=== PATIENT | male | born 1995 | race Caucasian/White ===

== ENCOUNTER 2016-11-24 16:48 | Emergency (ER) | payer OTHER ==
[2016-11-24] MEDS ORDERED: AMPICILLIN/SULBACTAM 3 GM in SODIUM CHLORIDE 0.9% MINIBAG 100 ML IV STA (17:27)
[2016-11-24] MEDS ORDERED: SODIUM CHLORIDE 0.9% 1,000 ML IV ONE (17:28)
[2016-11-24] MEDS ORDERED: DEXAMETHASONE 10 MG/ML VIAL IVP STA (17:28)
[2016-11-24] MEDS ORDERED: DEXAMETHASONE 10 MG/ML VIAL ONE (17:36)
== END 2016-11-24 18:44 | disposition home or self-care (01) ==
DX: Q89.2 Congenital malformations of other endocrine glands (principal); Z98.890 Other specified postprocedural states

== ENCOUNTER 2018-01-01 13:07 | Emergency (ER) | payer OTHER ==
[2018-01-01 13:45] VITALS: BP 145/85
--- NOTE | 2018-01-01 14:44 | ED Physician Documentation ---
PD HPI NVD - Stated complaint Stated Complaint: NAUSEA - Chief complaint Chief Complaint: General - History obtained from History obtained from: Patient - History of Present Illness Timing - onset: How many days ago (3-4) Timing - duration: Days (3-4) Timing - details: Gradual onset, Still present Associated symptoms: Other (has had congestion and sore throat, now ear pain and today vomiting.) Contributing factors: No: Sick contact, Bad food, Travel Worsened by: Moving Similar symptoms before: Has not had sx before Recently seen: Not recently seen Review of Systems Constitutional: reports: Myalgias. denies: Fever, Chills Ears: reports: Ear pain (right) Nose: reports: Rhinorrhea / runny nose, Congestion Throat: reports: Sore throat Respiratory: denies: Cough GI: reports: Nausea, Vomiting. denies: Abdominal Pain, Diarrhea Skin: denies: Rash, Lesions Neurologic: denies: Altered mental status, Headache PD PAST MEDICAL HISTORY - Past Medical History Past Medical History: No - Past Surgical History Past Surgical History: Yes - Present Medications Home Medications: Ambulatory Orders Medication Instructions Recorded Confirmed Amoxicillin 500 mg PO TID #20 capsule 01/01/18 Cetirizine [ZyrTEC] 10 mg PO DAILY #20 tablet 01/01/18 Dexamethasone [Decadron] 4 mg PO DAILY #5 tablet 01/01/18 Ondansetron Odt [Zofran] 4 mg TL Q6H PRN #15 tablet 01/01/18 - Allergies Allergies/Adverse Reactions: Allergies Allergy/AdvReac Type Severity Reaction Status Date / Time clindamycin Allergy Severe Nausea Verified 11/24/16 16:59 - Social History Does the pt smoke?: No Smoking Status: Never smoker Does the pt drink ETOH?: Yes ETOH Use: Beer Does the pt have substance abuse?: No - Immunizations Immunizations are current?: Yes - POLST Patient has POLST: No PD ED PE NORMAL - Vitals Vital signs reviewed: Yes - General General: Alert and oriented X 3, No acute distress, Well developed/nourished - HEENT HEENT: PERRL, EOMI (no nystagmus), Pharynx benign. No: Ears normal (left is good; right with redness and bulging. Canal appears okay. ) - Neck Neck: Supple, no meningeal sign - Cardiac Cardiac: RRR, No murmur - Respiratory Respiratory: Clear bilaterally - Abdomen Abdomen: Soft, Non tender - Derm Derm: Normal color, Warm and dry, No rash - Neuro Neuro: Alert and oriented X 3, No motor deficit, Normal speech Results - Vitals Vitals: Vital Signs - 24 hr 01/01/18 13:43 Temperature 36.4 C L Heart Rate 102 H Respiratory 19 Rate Blood Pressure 145/85 H O2 Saturation 98 Oxygen O2 Source Room air PD MEDICAL DECISION MAKING - ED course Complexity details: considered differential, d/w patient Departure - Departure Disposition: 01 Home, Self Care Clinical Impression: Nausea & vomiting Qualifiers: Vomiting type: unspecified Vomiting Intractability: non-intractable Qualified Code(s): R11.2 - Nausea with vomiting, unspecified Right otitis media Qualifiers: Otitis media type: suppurative Chronicity: acute Recurrence: not specified as recurrent Spontaneous tympanic membrane rupture: without spontaneous rupture Qualified Code(s): H66.001 - Acute suppurative otitis media without spontaneous rupture of ear drum, right ear Condition: Stable Record reviewed to determine appropriate education?: Yes Instructions: ED Otitis Media Acute Adult Prescriptions: Amoxicillin 500 mg PO TID #20 capsule Cetirizine [ZyrTEC] 10 mg PO DAILY #20 tablet Dexamethasone [Decadron] 4 mg PO DAILY #5 tablet Ondansetron Odt [Zofran] 4 mg TL Q6H PRN #15 tablet PRN Reason: Nausea / Vomiting Comments: The underlying process may be a viral illness or possibly allergies with the congestion and ear pain. It does look like it led into an ear infection on the right side and is likely contributing to the nausea from that. Rest for 1-2 days. Drink lots of fluids. Ondansetron if needed for nausea. Decadron steroid anti-inflammatory will help with the inflammation and symptoms. Amoxicillin 3 times a day for a week for the infection. Cetirizine daily for the next couple of weeks for possible underlying allergies. Forms: Activity restrictions Discharge Date/Time: 01/01/18 15:08
[2018-01-01] MEDS ORDERED: DEXAMETHASONE 10 MG/ML VIAL PO STA (14:59)
[2018-01-01] MEDS ORDERED: AMOXICILLIN 250 MG CAPSULE PO STA (14:59)
[2018-01-01] MEDS ORDERED: ONDANSETRON ODT 4 MG TABLET TL STA (14:59)
[2018-01-01] MEDS ORDERED: ACETAMINOPHEN 325 MG TABLET PO STA (14:59)
== END 2018-01-01 15:08 | disposition home or self-care (01) ==
LOC: ED 13:07
DX: R11.2 Nausea with vomiting, unspecified (principal); H66.001 Acute suppurative otitis media without spontaneous rupture of ear drum, right ear
CPT/HCPCS: 99283; A9270; Q0162

== ENCOUNTER 2019-01-31 10:43 | Emergency (ER) | payer SELFPAY ==
[2019-01-31 10:52] VITALS: BP 141/87
--- NOTE | 2019-01-31 12:32 | ED Physician Documentation ---
PD HPI HEENT - Stated complaint Stated Complaint: COUGHING UP BLOOD - Chief complaint Chief Complaint: Heent - History obtained from History obtained from: Patient - History of Present Illness Timing - onset: Other (He has been sick for about 5 days with severe right-sided sinus pressure radiating to the, productive cough with mild shortness of breath and sputum that is slightly blood-streaked starting today. He vacillates as to whether or not he is had fevers.) Review of Systems Constitutional: reports: Chills, Fatigue. denies: Sweats Ears: reports: Ear pain Nose: reports: Rhinorrhea / runny nose, Congestion, Sinus pressure / pain. denies: Epistaxis Throat: denies: Sore throat PD PAST MEDICAL HISTORY - Past Medical History Past Medical History: No - Past Surgical History Past Surgical History: Yes - Present Medications Home Medications: Ambulatory Orders Medication Instructions Recorded Confirmed Albuterol Sulf [Ventolin Hfa 1 - 2 puffs INH Q4HR PRN #1 inhaler 01/31/19 Inhaler] Amox/Clav 875/125 [Augmentin] 1 each PO Q12H #20 tablet 01/31/19 Guaifenesin/Pseudoephedrne HCl 1 each PO BID PRN #20 tab.er.12h 01/31/19 [Mucinex D ER 600-60 mg Tablet] predniSONE [Deltasone] 20 mg PO [id number] #21 tab 01/31/19 - Allergies Allergies/Adverse Reactions: Allergies Allergy/AdvReac Type Severity Reaction Status Date / Time clindamycin Allergy Severe Nausea Verified 01/31/19 10:52 - Social History Does the pt smoke?: No Smoking Status: Never smoker Does the pt drink ETOH?: Yes Does the pt have substance abuse?: No - Immunizations Immunizations are current?: Yes - POLST Patient has POLST: No PD ED PE NORMAL - Vitals Vital signs reviewed: Yes - General General: Alert and oriented X 3, No acute distress - HEENT HEENT: Other (Moderate right maxillary sinus tenderness, right TM is retracted without otitis. Oropharynx is normal.) - Neck Neck: Supple, no meningeal sign, No bony TTP - Cardiac Cardiac: RRR, No murmur - Respiratory Respiratory: No respiratory distress, Other (Mildly wheezy throughout with good air motion, nonlabored) - Abdomen Abdomen: Non tender - Neuro Neuro: Alert and oriented X 3, Normal speech Results - Vitals Vitals: Vital Signs - 24 hr 01/31/19 10:50 Temperature 36.5 C Heart Rate 71 Respiratory 16 Rate Blood Pressure 141/87 H O2 Saturation 98 Oxygen O2 Source Room air PD MEDICAL DECISION MAKING - ED course ED course: He does fit IDSA criteria for antibiotic treatment for sinusitis. Departure - Departure Disposition: 01 Home, Self Care Clinical Impression: Sinusitis Qualifiers: Sinusitis location: maxillary Chronicity: acute Recurrence: non-recurrent Qualified Code(s): J01.00 - Acute maxillary sinusitis, unspecified Condition: Good Record reviewed to determine appropriate education?: Yes Health Concerns: sinus infection, mild hemoptysis with clinical findings of bronchitis Plan of Treatment: Antibiotics, steroids, and inhaler and a decongestant. Follow-up with your doctor in 1 week if not better. Care Goals: improvement Assessment: as above Instructions: ED Sinusitis Abx Tx Prescriptions: Albuterol Sulf [Ventolin Hfa Inhaler] 1 - 2 puffs INH Q4HR PRN #1 inhaler PRN Reason: Shortness Of Air/Wheezing Amox/Clav 875/125 [Augmentin] 1 each PO Q12H #20 tablet Guaifenesin/Pseudoephedrne HCl [Mucinex D ER 600-60 mg Tablet] 1 each PO BID PRN #20 tab.er.12h PRN Reason: congestion predniSONE [Deltasone] 20 mg PO [id number] #21 tab
== END 2019-01-31 12:45 | disposition home or self-care (01) ==
LOC: ED 10:43
DX: J01.00 Acute maxillary sinusitis, unspecified (principal)
CPT/HCPCS: 99283

== ENCOUNTER 2022-02-20 13:52 | Emergency (ER) | payer OTHER ==
--- NOTE | 2022-02-20 14:38 | XRAY Report ---
PROCEDURE: Knee 4 View RT INDICATIONS: Trauma TECHNIQUE: 4 views of the right knee(s) were acquired. COMPARISON: None. FINDINGS: Bones: No fractures or dislocations. No suspicious bony lesions. Soft tissues: No joint effusion. No suspicious soft tissue calcifications. Prepatellar swelling an d fluid. IMPRESSION: Large prepatellar swelling/fluid, possibly prepatellar bursitis. No acute osseous abnorm ality. Reviewed by: Sathya Nava MD on 02/20/2022 2:37 PM PDT Approved by: Sathya Nava MD on 02/20/2022 2:37 PM PDT Station ID: [id number]
--- OUTSIDE RECORDS SUMMARY | 2022-02-20 14:42 | EXTERNAL MEDICAL SUMMARY RPT | Continuity of Care Document ---
:1995 Author Organization [facility] Address [address] [place] [address] Phone Allergies No information. Encounters No information. Functional Status No information. Immunizations No information. Medications No information. Problems No information. Procedures date description facility [id number] [facility] Results/Labs test date author facility value unit interpret ation Result panel 1 (unknown) (no (unknown) (unknown) (no value) (units (unk nown) date) unknown) (unknown) (no (unknown) (unknown) (no value) (units (unk nown) date) unknown) (unknown) (no (unknown) (unknown) [place], [place] (units ( unknown) date) [id number] unknown) (unknown) (no (unknown) (unknown) Draft (units (unkno wn) date) unknown) (unknown) (no (unknown) (unknown) [facility] (units (unknown) date) unknown) (unknown) (no (unknown) (unknown) Urology Office (units (unknown) date) Visit unknown) (unknown) (no (unknown) (unknown) (no value) (units (unk nown) date) unknown) (unknown) (no (unknown) (unknown) [phone] (units (unkn own) date) unknown) (unknown) (no (unknown) (unknown) 12/13/21 (units (unkno wn) date) unknown) (unknown) (no (unknown) (unknown) 26 Y/O M (units (unkno wn) date) presents to unknown) clinic as new patient for infertility (unknown) (no (unknown) (unknown) Age/Sex: 26 / M (units (unknown) date) Date of unknown) Service: (unknown) (no (unknown) (unknown) Allergies (units (unkn own) date) unknown) (unknown) (no (unknown) (unknown) Attending Dr: (units ( unknown) date) Ceferino Carl MD unknown) (unknown) (no (unknown) (unknown) : 1995 (units (unknown) date) Acct:[id number] unknown) (unknown) (no (unknown) (unknown) Dept at (units (unkno wn) date) . unknown) (unknown) (no (unknown) (unknown) Documented By: (units (unknown) date) Ceferino Carl MD unknown) 12/13/21 1105 (unknown) (no (unknown) (unknown) History of (units (unk nown) date) pyloric stenosis unknown) (unknown) (no (unknown) (unknown) Hx of thyroid (units ( unknown) date) cyst unknown) (unknown) (no (unknown) (unknown) Intake (units (unkno wn) date) unknown) (unknown) (no (unknown) (unknown) Intake Note: (units (u nknown) date) unknown) (unknown) (no (unknown) (unknown) Intake performed (units (unknown) date) by: unknown) Samanta Schroeder (unknown) (no (unknown) (unknown) Intake- Clincial (units (unknown) date) Staff unknown) (unknown) (no (unknown) (unknown) Loc: [facility] (units (unkno wn) date) unknown) (unknown) (no (unknown) (unknown) Medical History (units (unknown) date) (Updated 12/13/21 unknown) @ 10:57 by Samanta Schroeder RN) (unknown) (no (unknown) (unknown) Medications (units (un known) date) unknown) (unknown) (no (unknown) (unknown) PFSH (units (unkno wn) date) unknown) (unknown) (no (unknown) (unknown) Patient denies (units (unknown) date) medical problems unknown) (unknown) (no (unknown) (unknown) Patient: (units (unkno wn) date) Eugenia,Steve J unknown) MR#: M (unknown) (no (unknown) (unknown) Reason For Visit (units (unknown) date) unknown) (unknown) (no (unknown) (unknown) Signed By: (units (unk nown) date) unknown) (unknown) (no (unknown) (unknown) Smoking Status: (units (unknown) date) Never smoker unknown) (unknown) (no (unknown) (unknown) Smoking Status: (units (unknown) date) Never smoker unknown) (unknown) (no (unknown) (unknown) Social History (units (unknown) date) (Updated 12/13/21 unknown) @ 11:00 by Samanta Schroeder RN) (unknown) (no (unknown) (unknown) This note may (units ( unknown) date) have been all or unknown) partially generated using voice recognition (unknown) (no (unknown) (unknown) Tobacco Status (units (unknown) date) unknown) (unknown) (no (unknown) (unknown) Type(s) of (units (unk nown) date) exercise: unknown) independent ambulation (unknown) (no (unknown) (unknown) 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 (units (unknown) date) If there are any unknown) questions, please contact the Medical Records (unknown) (no (unknown) (unknown) marital status: (units (unknown) date) unknown) (unknown) (no (unknown) (unknown) may occur. (units (unk nown) date) Occasional unknown) wrong-word or 'sound-alike' substitutions may have (unknown) (no (unknown) (unknown) [id number] (units (unknown) date) ic-vit K-lycop unknown) [One-A-Day Men's Multivitamin] PO 12/13/21 (unknown) (no (unknown) (unknown) number of (units (unkn own) date) children: 0 unknown) (unknown) (no (unknown) (unknown) occupational (units (u nknown) date) status: employed unknown) (unknown) (no (unknown) (unknown) occurred due to (units (unknown) date) the inherent unknown) limitations of voice recognition software. Please (unknown) (no (unknown) (unknown) read the note (units ( unknown) date) carefully and unknown) recognize, using context, where these substitutions (unknown) (no (unknown) (unknown) software. (units (unkn own) date) Although every unknown) effort is made to edit content, metallographer errors Result panel 2 (unknown) (no (unknown) (unknown) (no value) (units (unk nown) date) unknown) (unknown) (no (unknown) (unknown) Orders: (units (unkno wn) date) unknown) (unknown) (no (unknown) (unknown) (no value) (units (unk nown) date) unknown) (unknown) (no (unknown) (unknown) (no value) (units (unk nown) date) unknown) (unknown) (no (unknown) (unknown) 12/13/21 (units (unkno wn) date) unknown) (unknown) (no (unknown) (unknown) 11:15 (units (unkno wn) date) unknown) (unknown) (no (unknown) (unknown) [place], [place] (units ( unknown) date) [id number] unknown) (unknown) (no (unknown) (unknown) Draft (units (unkno wn) date) unknown) (unknown) (no (unknown) (unknown) [facility] (units (unknown) date) unknown) (unknown) (no (unknown) (unknown) Urology Office (units (unknown) date) Visit unknown) (unknown) (no (unknown) (unknown) (no value) (units (unk nown) date) unknown) (unknown) (no (unknown) (unknown) Urine Appearance (units (unknown) date) Clear Last unknown) Edit by Winter Gutierrez RN on 12/13/21 11:14 (unknown) (no (unknown) (unknown) Urine Bilirubin (units (unknown) date) Negative Last unknown) Edit by Winter Gutierrez RN on 12/13/21 11:14 (unknown) (no (unknown) (unknown) Urine Blood (units (un known) date) Negative Last unknown) Edit by Winter Gutierrez RN on 12/13/21 11:14 (unknown) (no (unknown) (unknown) Urine Color (units (un known) date) Yellow Last unknown) Edit by Winter Gutierrez RN on 12/13/21 11:14 (unknown) (no (unknown) (unknown) Urine Glucose (units ( unknown) date) Negative mg/dL unknown) Last Edit by Winter Gutierrez RN on 12/13/21 11: (unknown) (no (unknown) (unknown) Urine Ketones (units ( unknown) date) Negative Last unknown) Edit by Winter Gutierrez RN on 12/13/21 11:14 (unknown) (no (unknown) (unknown) Urine Leukocyte (units (unknown) date) Esterase Negative unknown) Last Edit by Winter Gutierrez RN on (unknown) (no (unknown) (unknown) Urine Nitrate (units ( unknown) date) Negative Last unknown) Edit by Winter Gutierrez RN on 12/13/21 11:14 (unknown) (no (unknown) (unknown) Urine Protein (units ( unknown) date) Negative Last unknown) Edit by Winter Gutierrez RN on 12/13/21 11:14 (unknown) (no (unknown) (unknown) Urine Specific (units (unknown) date) [place] 1.015 unknown) Last Edit by Winter Gutierrez RN on 12/13/21 11 (unknown) (no (unknown) (unknown) Urine (units (unkno wn) date) Urobilinogen - unknown) 0.2 mg/dL Last Edit by Winter Gutierrez RN on (unknown) (no (unknown) (unknown) Urine pH 7.5 (units (unknown) date) Last Edit by unknown) Winter Gutierrez RN on 12/13/21 11:14 (unknown) (no (unknown) (unknown) [phone] (units (unkn own) date) unknown) (unknown) (no (unknown) (unknown) 12/13/21 (units (unkno wn) date) unknown) (unknown) (no (unknown) (unknown) 11:14 (units (unkno wn) date) unknown) (unknown) (no (unknown) (unknown) 14 (units (unkno wn) date) unknown) (unknown) (no (unknown) (unknown) 2 (units (unkno wn) date) unknown) (unknown) (no (unknown) (unknown) 22 (units (unkno wn) date) unknown) (unknown) (no (unknown) (unknown) 26 Y/O M (units (unkno wn) date) presents to unknown) clinic as new patient for infertility (unknown) (no (unknown) (unknown) :14 (units (unkno wn) date) unknown) (unknown) (no (unknown) (unknown) Age/Sex: 26 / M (units (unknown) date) Date of unknown) Service: (unknown) (no (unknown) (unknown) Allergies (units (unkn own) date) unknown) (unknown) (no (unknown) (unknown) Assessment + (units (u nknown) date) Plan unknown) (unknown) (no (unknown) (unknown) Attending Dr: (units ( unknown) date) Ceferino Carl MD unknown) (unknown) (no (unknown) (unknown) BMI 25.7 (units (un known) date) unknown) (unknown) (no (unknown) (unknown) BP 131/81 (units (u nknown) date) unknown) (unknown) (no (unknown) (unknown) Blood Pressure (units (unknown) date) Location Lt unknown) brachial (unknown) (no (unknown) (unknown) : 1995 (units (unknown) date) Acct:[id number] unknown) (unknown) (no (unknown) (unknown) Dept at (units (unkno wn) date) . unknown) (unknown) (no (unknown) (unknown) Documented By: (units (unknown) date) Ceferino Carl MD unknown) 12/13/21 1105 (unknown) (no (unknown) (unknown) Height 6 ft 1 (units (unknown) date) in unknown) (unknown) (no (unknown) (unknown) History of (units (unk nown) date) pyloric stenosis unknown) (unknown) (no (unknown) (unknown) Hx of thyroid (units ( unknown) date) cyst unknown) (unknown) (no (unknown) (unknown) Intake (units (unkno wn) date) unknown) (unknown) (no (unknown) (unknown) Intake Note: (units (u nknown) date) unknown) (unknown) (no (unknown) (unknown) Intake performed (units (unknown) date) by: unknown) Samanta Schroeder (unknown) (no (unknown) (unknown) Intake- Clincial (units (unknown) date) Staff unknown) (unknown) (no (unknown) (unknown) Loc: [facility] (units (unkno wn) date) unknown) (unknown) (no (unknown) (unknown) Medical History (units (unknown) date) (Updated 12/13/21 unknown) @ 10:57 by Samanta Schroeder RN) (unknown) (no (unknown) (unknown) Medications (units (un known) date) unknown) (unknown) (no (unknown) (unknown) Orders (units (unkno wn) date) unknown) (unknown) (no (unknown) (unknown) Oxygen Delivery (units (unknown) date) Method room unknown) air (unknown) (no (unknown) (unknown) PFSH (units (unkno wn) date) unknown) (unknown) (no (unknown) (unknown) POC Urine Dip (units ( unknown) date) Today R30.0 - unknown) Dysuria (unknown) (no (unknown) (unknown) Patient denies (units (unknown) date) medical problems unknown) (unknown) (no (unknown) (unknown) Patient: (units (unkno wn) date) Steve Fleming J unknown) MR#: M (unknown) (no (unknown) (unknown) Position (units (unkno wn) date) Sitting unknown) (unknown) (no (unknown) (unknown) Pulse 64 (units (un known) date) unknown) (unknown) (no (unknown) (unknown) Pulse Oximetry (units (unknown) date) (%) 100 unknown) (unknown) (no (unknown) (unknown) Pulse Source (units (u nknown) date) Monitor unknown) (unknown) (no (unknown) (unknown) Reason For Visit (units (unknown) date) unknown) (unknown) (no (unknown) (unknown) Respiration (units (un known) date) 16 unknown) (unknown) (no (unknown) (unknown) Results (units (unkno wn) date) unknown) (unknown) (no (unknown) (unknown) Signed By: (units (unk nown) date) unknown) (unknown) (no (unknown) (unknown) Smoking Status: (units (unknown) date) Never smoker unknown) (unknown) (no (unknown) (unknown) Smoking Status: (units (unknown) date) Never smoker unknown) (unknown) (no (unknown) (unknown) Social History (units (unknown) date) (Updated 12/13/21 unknown) @ 11:00 by Samanta Schroeder RN) (unknown) (no (unknown) (unknown) This note may (units ( unknown) date) have been all or unknown) partially generated using voice recognition (unknown) (no (unknown) (unknown) Tobacco Status (units (unknown) date) unknown) (unknown) (no (unknown) (unknown) Type(s) of (units (unk nown) date) exercise: unknown) independent ambulation (unknown) (no (unknown) (unknown) Urine Dipstick (units (unknown) date) unknown) (unknown) (no (unknown) (unknown) 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 (units (unknown) date) If there are any unknown) questions, please contact the Medical Records (unknown) (no (unknown) (unknown) marital status: (units (unknown) date) unknown) (unknown) (no (unknown) (unknown) may occur. (units (unk nown) date) Occasional unknown) wrong-word or 'sound-alike' substitutions may have (unknown) (no (unknown) (unknown) [id number] (units (unknown) date) ic-vit K-lycop unknown) [One-A-Day Men's Multivitamin] PO 12/13/21 (unknown) (no (unknown) (unknown) number of (units (unkn own) date) children: 0 unknown) (unknown) (no (unknown) (unknown) occupational (units (u nknown) date) status: employed unknown) (unknown) (no (unknown) (unknown) occurred due to (units (unknown) date) the inherent unknown) limitations of voice recognition software. Please (unknown) (no (unknown) (unknown) read the note (units ( unknown) date) carefully and unknown) recognize, using context, where these substitutions (unknown) (no (unknown) (unknown) software. (units (unkn own) date) Although every unknown) effort is made to edit content, metallographer errors Result panel 3 (unknown) (no (unknown) (unknown) (no value) (units (unk nown) date) unknown) (unknown) (no (unknown) (unknown) Orders: (units (unkno wn) date) unknown) (unknown) (no (unknown) (unknown) (no value) (units (unk nown) date) unknown) (unknown) (no (unknown) (unknown) (no value) (units (unk nown) date) unknown) (unknown) (no (unknown) (unknown) 12/13/21 (units (unkno wn) date) unknown) (unknown) (no (unknown) (unknown) 11:15 (units (unkno wn) date) unknown) (unknown) (no (unknown) (unknown) [place], [place] (units ( unknown) date) [id number] unknown) (unknown) (no (unknown) (unknown) Draft (units (unkno wn) date) unknown) (unknown) (no (unknown) (unknown) [facility] (units (unknown) date) unknown) (unknown) (no (unknown) (unknown) Urology Office (units (unknown) date) Visit unknown) (unknown) (no (unknown) (unknown) (no value) (units (unk nown) date) unknown) (unknown) (no (unknown) (unknown) Urine Appearance (units (unknown) date) Clear Last unknown) Edit by Winter Gutierrez RN on 12/13/21 11:14 (unknown) (no (unknown) (unknown) Urine Bilirubin (units (unknown) date) Negative Last unknown) Edit by Winter Gutierrez RN on 12/13/21 11:14 (unknown) (no (unknown) (unknown) Urine Blood (units (un known) date) Negative Last unknown) Edit by Winter Gutierrez RN on 12/13/21 11:14 (unknown) (no (unknown) (unknown) Urine Color (units (un known) date) Yellow Last unknown) Edit by Winter Gutierrez RN on 12/13/21 11:14 (unknown) (no (unknown) (unknown) Urine Glucose (units ( unknown) date) Negative mg/dL unknown) Last Edit by Winter Gutierrez RN on 12/13/21 11: (unknown) (no (unknown) (unknown) Urine Ketones (units ( unknown) date) Negative Last unknown) Edit by Winter Gutierrez RN on 12/13/21 11:14 (unknown) (no (unknown) (unknown) Urine Leukocyte (units (unknown) date) Esterase Negative unknown) Last Edit by Winter Gutierrez RN on (unknown) (no (unknown) (unknown) Urine Nitrate (units ( unknown) date) Negative Last unknown) Edit by Winter Gutierrez RN on 12/13/21 11:14 (unknown) (no (unknown) (unknown) Urine Protein (units ( unknown) date) Negative Last unknown) Edit by Winter Gutierrez RN on 12/13/21 11:14 (unknown) (no (unknown) (unknown) Urine Specific (units (unknown) date) [place] 1.015 unknown) Last Edit by Winter Gutierrez RN on 12/13/21 11 (unknown) (no (unknown) (unknown) Urine (units (unkno wn) date) Urobilinogen - unknown) 0.2 mg/dL Last Edit by Winter Gutierrez RN on (unknown) (no (unknown) (unknown) Urine pH 7.5 (units (unknown) date) Last Edit by unknown) Winter Gutierrez RN on 12/13/21 11:14 (unknown) (no (unknown) (unknown) [id number] (units (unkn own) date) unknown) (unknown) (no (unknown) (unknown) 12/13/21 (units (unkno wn) date) unknown) (unknown) (no (unknown) (unknown) 11:14 (units (unkno wn) date) unknown) (unknown) (no (unknown) (unknown) 14 (units (unkno wn) date) unknown) (unknown) (no (unknown) (unknown) 2 (units (unkno wn) date) unknown) (unknown) (no (unknown) (unknown) 22 (units (unkno wn) date) unknown) (unknown) (no (unknown) (unknown) 26 Y/O M (units (unkno wn) date) presents to unknown) clinic as new patient for infertility (unknown) (no (unknown) (unknown) :14 (units (unkno wn) date) unknown) (unknown) (no (unknown) (unknown) Abnormal semen (units (unknown) date) analysis unknown) (unknown) (no (unknown) (unknown) Age/Sex: 26 / M (units (unknown) date) Date of unknown) Service: (unknown) (no (unknown) (unknown) Allergies (units (unkn own) date) unknown) (unknown) (no (unknown) (unknown) Assessment + (units (u nknown) date) Plan unknown) (unknown) (no (unknown) (unknown) Attending Dr: (units ( unknown) date) Ceferino Carl MD unknown) (unknown) (no (unknown) (unknown) BMI 25.7 (units (un known) date) unknown) (unknown) (no (unknown) (unknown) BP 131/81 (units (u nknown) date) unknown) (unknown) (no (unknown) (unknown) Blood Pressure (units (unknown) date) Location Lt unknown) brachial (unknown) (no (unknown) (unknown) Chief Complaint (units (unknown) date) unknown) (unknown) (no (unknown) (unknown) Chief Complaint: (units (unknown) date) Abnormal sperm unknown) motility/infertil ity (unknown) (no (unknown) (unknown) : 1995 (units (unknown) date) Acct:[id number] unknown) (unknown) (no (unknown) (unknown) Dept at (units (unkno wn) date) . unknown) (unknown) (no (unknown) (unknown) Details: (units (unkno wn) date) unknown) (unknown) (no (unknown) (unknown) Documented By: (units (unknown) date) Ceferino Carl MD unknown) 12/13/21 1105 (unknown) (no (unknown) (unknown) HPI (units (unkno wn) date) unknown) (unknown) (no (unknown) (unknown) Height 6 ft 1 (units (unknown) date) in unknown) (unknown) (no (unknown) (unknown) History of (units (unk nown) date) pyloric stenosis unknown) (unknown) (no (unknown) (unknown) Hx of thyroid (units ( unknown) date) cyst unknown) (unknown) (no (unknown) (unknown) Intake (units (unkno wn) date) unknown) (unknown) (no (unknown) (unknown) Intake Note: (units (u nknown) date) unknown) (unknown) (no (unknown) (unknown) Intake performed (units (unknown) date) by: unknown) Samanta Schroeder (unknown) (no (unknown) (unknown) Intake- Clincial (units (unknown) date) Staff unknown) (unknown) (no (unknown) (unknown) Loc: [facility] (units (unkno wn) date) unknown) (unknown) (no (unknown) (unknown) Medical History (units (unknown) date) (Updated 12/13/21 unknown) @ 14:20 by Ceferino Carl MD) (unknown) (no (unknown) (unknown) Medications (units (un known) date) unknown) (unknown) (no (unknown) (unknown) Orders (units (unkno wn) date) unknown) (unknown) (no (unknown) (unknown) Oxygen Delivery (units (unknown) date) Method room unknown) air (unknown) (no (unknown) (unknown) PFSH (units (unkno wn) date) unknown) (unknown) (no (unknown) (unknown) POC Urine Dip (units ( unknown) date) 12/13/21 R30.0 - unknown) Dysuria (unknown) (no (unknown) (unknown) Patient denies (units (unknown) date) medical problems unknown) (unknown) (no (unknown) (unknown) Patient: (units (unkno wn) date) Steve Fleming J unknown) MR#: M (unknown) (no (unknown) (unknown) Position (units (unkno wn) date) Sitting unknown) (unknown) (no (unknown) (unknown) Pulse 64 (units (un known) date) unknown) (unknown) (no (unknown) (unknown) Pulse Oximetry (units (unknown) date) (%) 100 unknown) (unknown) (no (unknown) (unknown) Pulse Source (units (u nknown) date) Monitor unknown) (unknown) (no (unknown) (unknown) Reason For Visit (units (unknown) date) unknown) (unknown) (no (unknown) (unknown) Respiration (units (un known) date) 16 unknown) (unknown) (no (unknown) (unknown) Results (units (unkno wn) date) unknown) (unknown) (no (unknown) (unknown) Semen Analysis - (units (unknown) date) Fertility 1 Week unknown) R86.9 - Unspecified abnormal finding in (unknown) (no (unknown) (unknown) Semen Analysis - (units (unknown) date) Fertility 3 Weeks unknown) R86.9 - Unspecified abnormal finding in (unknown) (no (unknown) (unknown) Signed By: (units (unk nown) date) unknown) (unknown) (no (unknown) (unknown) Smoking Status: (units (unknown) date) Never smoker unknown) (unknown) (no (unknown) (unknown) Smoking Status: (units (unknown) date) Never smoker unknown) (unknown) (no (unknown) (unknown) Social History (units (unknown) date) (Updated 12/13/21 unknown) @ 11:00 by Samanta Schroeder RN) (unknown) (no (unknown) (unknown) This 26-year-old (units (unknown) date) male comes unknown) [facility] as a new patient with complaint of (unknown) (no (unknown) (unknown) This note may (units ( unknown) date) have been all or unknown) partially generated using voice recognition (unknown) (no (unknown) (unknown) Tobacco Status (units (unknown) date) unknown) (unknown) (no (unknown) (unknown) Type(s) of (units (unk nown) date) exercise: unknown) independent ambulation (unknown) (no (unknown) (unknown) Urine Dipstick (units (unknown) date) unknown) (unknown) (no (unknown) (unknown) 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 (unknown) (no (unknown) (unknown) alcohol intake: (units (unknown) date) current unknown) (unknown) (no (unknown) (unknown) caffeine: Yes (units (unknown) date) unknown) (unknown) (no (unknown) (unknown) clindamycin (units (un known) date) Allergy (Verified unknown) 12/13/21 11:10) (unknown) (no (unknown) (unknown) have occurred. (units (unknown) date) If there are any unknown) questions, please contact the Medical Records (unknown) (no (unknown) (unknown) marital status: (units (unknown) date) unknown) (unknown) (no (unknown) (unknown) may occur. (units (unk nown) date) Occasional unknown) wrong-word or 'sound-alike' substitutions may have (unknown) (no (unknown) (unknown) [id number] (units (unknown) date) ic-vit K-lycop unknown) [One-A-Day Men's Multivitamin] PO 12/13/21 (unknown) (no (unknown) (unknown) number of (units (unkn own) date) children: 0 unknown) (unknown) (no (unknown) (unknown) occupational (units (u nknown) date) status: employed unknown) (unknown) (no (unknown) (unknown) occurred due to (units (unknown) date) the inherent unknown) limitations of voice recognition software. Please (unknown) (no (unknown) (unknown) read the note (units ( unknown) date) carefully and unknown) recognize, using context, where these substitutions (unknown) (no (unknown) (unknown) software. (units (unkn own) date) Although every unknown) effort is made to edit content, metallographer errors (unknown) (no (unknown) (unknown) specimens from (units (unknown) date) male genital unknown) organs Result panel 4 (unknown) (no (unknown) (unknown) (no value) (units (unk nown) date) unknown) (unknown) (no (unknown) (unknown) Orders: (units (unkno wn) date) unknown) (unknown) (no (unknown) (unknown) (no value) (units (unk nown) date) unknown) (unknown) (no (unknown) (unknown) (no value) (units (unk nown) date) unknown) (unknown) (no (unknown) (unknown) 12/13/21 (units (unkno wn) date) unknown) (unknown) (no (unknown) (unknown) 11:15 (units (unkno wn) date) unknown) (unknown) (no (unknown) (unknown) [facility] [place] (units ( unknown) date) [id number] unknown) (unknown) (no (unknown) (unknown) Draft (units (unkno wn) date) unknown) (unknown) (no (unknown) (unknown) [facility] (units (unknown) date) unknown) (unknown) (no (unknown) (unknown) Urology Office (units (unknown) date) Visit unknown) (unknown) (no (unknown) (unknown) (no value) (units (unk nown) date) unknown) (unknown) (no (unknown) (unknown) Urine Appearance (units (unknown) date) Clear Last unknown) Edit by Winter Gutierrez RN on 12/13/21 11:14 (unknown) (no (unknown) (unknown) Urine Bilirubin (units (unknown) date) Negative Last unknown) Edit by Winter Gutierrez RN on 12/13/21 11:14 (unknown) (no (unknown) (unknown) Urine Blood (units (un known) date) Negative Last unknown) Edit by Winter Gutierrez RN on 12/13/21 11:14 (unknown) (no (unknown) (unknown) Urine Color (units (un known) date) Yellow Last unknown) Edit by Winter Gutierrez RN on 12/13/21 11:14 (unknown) (no (unknown) (unknown) Urine Glucose (units ( unknown) date) Negative mg/dL unknown) Last Edit by Winter Gutierrez RN on 12/13/21 11: (unknown) (no (unknown) (unknown) Urine Ketones (units ( unknown) date) Negative Last unknown) Edit by Winter Gutierrez RN on 12/13/21 11:14 (unknown) (no (unknown) (unknown) Urine Leukocyte (units (unknown) date) Esterase Negative unknown) Last Edit by Winter Gutierrez RN on (unknown) (no (unknown) (unknown) Urine Nitrate (units ( unknown) date) Negative Last unknown) Edit by Winter Gutierrez RN on 12/13/21 11:14 (unknown) (no (unknown) (unknown) Urine Protein (units ( unknown) date) Negative Last unknown) Edit by Winter Gutierrez RN on 12/13/21 11:14 (unknown) (no (unknown) (unknown) Urine Specific (units (unknown) date) [place] 1.015 unknown) Last Edit by Winter Gutierrez RN on 12/13/21 11 (unknown) (no (unknown) (unknown) Urine (units (unkno wn) date) Urobilinogen - unknown) 0.2 mg/dL Last Edit by Winter Gutierrez RN on (unknown) (no (unknown) (unknown) Urine pH 7.5 (units (unknown) date) Last Edit by unknown) Winter Gutierrez RN on 12/13/21 11:14 (unknown) (no (unknown) (unknown) [id number] (units (unkn own) date) unknown) (unknown) (no (unknown) (unknown) 12/13/21 (units (unkno wn) date) unknown) (unknown) (no (unknown) (unknown) 11:14 (units (unkno wn) date) unknown) (unknown) (no (unknown) (unknown) 14 (units (unkno wn) date) unknown) (unknown) (no (unknown) (unknown) 2 (units (unkno wn) date) unknown) (unknown) (no (unknown) (unknown) 22 (units (unkno wn) date) unknown) (unknown) (no (unknown) (unknown) 26 Y/O M (units (unkno wn) date) presents to unknown) clinic as new patient for infertility (unknown) (no (unknown) (unknown) :14 (units (unkno wn) date) unknown) (unknown) (no (unknown) (unknown) Abnormal semen (units (unknown) date) analysis unknown) (unknown) (no (unknown) (unknown) Age/Sex: 26 / M (units (unknown) date) Date of unknown) Service: (unknown) (no (unknown) (unknown) Allergies (units (unkn own) date) unknown) (unknown) (no (unknown) (unknown) Assessment + (units (u nknown) date) Plan unknown) (unknown) (no (unknown) (unknown) Attending Dr: (units ( unknown) date) Ceferino Carl MD unknown) (unknown) (no (unknown) (unknown) BMI 25.7 (units (un known) date) unknown) (unknown) (no (unknown) (unknown) BP 131/81 (units (u nknown) date) unknown) (unknown) (no (unknown) (unknown) Blood Pressure (units (unknown) date) Location Lt unknown) brachial (unknown) (no (unknown) (unknown) Chief Complaint (units (unknown) date) unknown) (unknown) (no (unknown) (unknown) Chief Complaint: (units (unknown) date) Abnormal sperm unknown) motility/infertil ity (unknown) (no (unknown) (unknown) : 1995 (units (unknown) date) Acct:[id number] unknown) (unknown) (no (unknown) (unknown) Dept at (units (unkno wn) date) . unknown) (unknown) (no (unknown) (unknown) Details: (units (unkno wn) date) unknown) (unknown) (no (unknown) (unknown) Documented By: (units (unknown) date) Ceferino Carl MD unknown) 12/13/21 1105 (unknown) (no (unknown) (unknown) HPI (units (unkno wn) date) unknown) (unknown) (no (unknown) (unknown) Height 6 ft 1 (units (unknown) date) in unknown) (unknown) (no (unknown) (unknown) History of (units (unk nown) date) pyloric stenosis unknown) (unknown) (no (unknown) (unknown) Hx of thyroid (units ( unknown) date) cyst unknown) (unknown) (no (unknown) (unknown) Intake (units (unkno wn) date) unknown) (unknown) (no (unknown) (unknown) Intake Note: (units (u nknown) date) unknown) (unknown) (no (unknown) (unknown) Intake performed (units (unknown) date) by: unknown) Samanta Schroeder (unknown) (no (unknown) (unknown) Intake- Clincial (units (unknown) date) Staff unknown) (unknown) (no (unknown) (unknown) Loc: [facility] (units (unkno wn) date) unknown) (unknown) (no (unknown) (unknown) Medical History (units (unknown) date) (Updated 12/13/21 unknown) @ 14:20 by Ceferino Carl MD) (unknown) (no (unknown) (unknown) Medications (units (un known) date) unknown) (unknown) (no (unknown) (unknown) Orders (units (unkno wn) date) unknown) (unknown) (no (unknown) (unknown) Oxygen Delivery (units (unknown) date) Method room unknown) air (unknown) (no (unknown) (unknown) PFSH (units (unkno wn) date) unknown) (unknown) (no (unknown) (unknown) POC Urine Dip (units ( unknown) date) 12/13/21 R30.0 - unknown) Dysuria (unknown) (no (unknown) (unknown) Patient denies (units (unknown) date) medical problems unknown) (unknown) (no (unknown) (unknown) Patient: (units (unkno wn) date) Steve Fleming unknown) MR#: M (unknown) (no (unknown) (unknown) Position (units (unkno wn) date) Sitting unknown) (unknown) (no (unknown) (unknown) Pulse 64 (units (un known) date) unknown) (unknown) (no (unknown) (unknown) Pulse Oximetry (units (unknown) date) (%) 100 unknown) (unknown) (no (unknown) (unknown) Pulse Source (units (u nknown) date) Monitor unknown) (unknown) (no (unknown) (unknown) Reason For Visit (units (unknown) date) unknown) (unknown) (no (unknown) (unknown) Respiration (units (un known) date) 16 unknown) (unknown) (no (unknown) (unknown) Results (units (unkno wn) date) unknown) (unknown) (no (unknown) (unknown) Semen Analysis - (units (unknown) date) Fertility 1 Week unknown) R86.9 - Unspecified abnormal finding in (unknown) (no (unknown) (unknown) Semen Analysis - (units (unknown) date) Fertility 3 Weeks unknown) R86.9 - Unspecified abnormal finding in (unknown) (no (unknown) (unknown) Signed By: (units (unk nown) date) unknown) (unknown) (no (unknown) (unknown) Smoking Status: (units (unknown) date) Never smoker unknown) (unknown) (no (unknown) (unknown) Smoking Status: (units (unknown) date) Never smoker unknown) (unknown) (no (unknown) (unknown) Social History (units (unknown) date) (Updated 12/13/21 unknown) @ 11:00 by Samanta Schroeder RN) (unknown) (no (unknown) (unknown) This 26-year-old (units (unknown) date) male comes unknown) Urology Clinic as a new patient with complaint of (unknown) (no (unknown) (unknown) This note may (units ( unknown) date) have been all or unknown) partially generated using voice recognition (unknown) (no (unknown) (unknown) Tobacco Status (units (unknown) date) unknown) (unknown) (no (unknown) (unknown) Type(s) of (units (unk nown) date) exercise: unknown) independent ambulation (unknown) (no (unknown) (unknown) Urine Dipstick (units (unknown) date) unknown) (unknown) (no (unknown) (unknown) 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 Patient (unknown) (no (unknown) (unknown) been trying in (units (unknown) date) the last 6 to 4 unknown) months. His is currently undergoing (unknown) (no (unknown) (unknown) caffeine: Yes (units (unknown) date) unknown) (unknown) (no (unknown) (unknown) clindamycin (units (un known) date) Allergy (Verified unknown) 12/13/21 11:10) (unknown) (no (unknown) (unknown) evaluation. She (units (unknown) date) had previously unknown) been on Clomid and they have been unsuccessful (unknown) (no (unknown) (unknown) have occurred. (units (unknown) date) If there are any unknown) questions, please contact the Medical Records (unknown) (no (unknown) (unknown) in conceiving to (units (unknown) date) date. unknown) (unknown) (no (unknown) (unknown) marital status: (units (unknown) date) unknown) (unknown) (no (unknown) (unknown) may occur. (units (unk nown) date) Occasional unknown) wrong-word or 'sound-alike' substitutions may have (unknown) (no (unknown) (unknown) [id number] (units (unknown) date) ic-vit K-lycop unknown) [One-A-Day Men's Multivitamin] PO 12/13/21 (unknown) (no (unknown) (unknown) number of (units (unkn own) date) children: 0 unknown) (unknown) (no (unknown) (unknown) occupational (units (u nknown) date) status: employed unknown) (unknown) (no (unknown) (unknown) occurred due to (units (unknown) date) the inherent unknown) limitations of voice recognition software. Please (unknown) (no (unknown) (unknown) read the note (units ( unknown) date) carefully and unknown) recognize, using context, where these substitutions (unknown) (no (unknown) (unknown) reports that it (units (unknown) date) was 3 days of unknown) abstinence prior to the samples. That he and his (unknown) (no (unknown) (unknown) software. (units (unkn own) date) Although every unknown) effort is made to edit content, metallographer errors (unknown) (no (unknown) (unknown) specimens from (units (unknown) date) male genital unknown) organs (unknown) (no (unknown) (unknown) have been (units (unknown) date) trying to have a unknown) child for approximately year but have really Result panel 5 (unknown) (no (unknown) (unknown) (no value) (units (unk nown) date) unknown) (unknown) (no (unknown) (unknown) Code(s): (units (unkno wn) date) unknown) (unknown) (no (unknown) (unknown) Orders: (units (unkno wn) date) unknown) (unknown) (no (unknown) (unknown) Status: Acute (units ( unknown) date) unknown) (unknown) (no (unknown) (unknown) (no value) (units (unk nown) date) unknown) (unknown) (no (unknown) (unknown) (no value) (units (unk nown) date) unknown) (unknown) (no (unknown) (unknown) 12/13/21 (units (unkno wn) date) unknown) (unknown) (no (unknown) (unknown) 12/14/21 1123 (units ( unknown) date) unknown) (unknown) (no (unknown) (unknown) 11:15 (units (unkno wn) date) unknown) (unknown) (no (unknown) (unknown) [place] [employer] [id number] (unit s (unknown) date) unknown) (unknown) (no (unknown) (unknown) [facility] (units (unknown) date) unknown) (unknown) (no (unknown) (unknown) Signed (units (unkno wn) date) unknown) (unknown) (no (unknown) (unknown) Urology Office (units (unknown) date) Visit unknown) (unknown) (no (unknown) (unknown) (no value) (units (unk nown) date) unknown) (unknown) (no (unknown) (unknown) Urine Appearance (units (unknown) date) Clear Last Edit unknown) by Winter Gutierrez RN on 12/13/21 11:14 (unknown) (no (unknown) (unknown) Urine Bilirubin (units (unknown) date) Negative Last unknown) Edit by Winter Gutierrez RN on 12/13/21 11:14 (unknown) (no (unknown) (unknown) Urine Blood (units (un known) date) Negative Last unknown) Edit by Winter Gutierrez RN on 12/13/21 11:14 (unknown) (no (unknown) (unknown) Urine Color (units (un known) date) Yellow Last Edit unknown) by Winter Gutierrez RN on 12/13/21 11:14 (unknown) (no (unknown) (unknown) Urine Glucose (units ( unknown) date) Negative mg/dL unknown) Last Edit by Winter Gutierrez RN on 12/13/21 11: (unknown) (no (unknown) (unknown) Urine Ketones (units ( unknown) date) Negative Last unknown) Edit by Winter Gutierrez RN on 12/13/21 11:14 (unknown) (no (unknown) (unknown) Urine Leukocyte (units (unknown) date) Esterase Negative unknown) Last Edit by Winter Gutierrez RN on (unknown) (no (unknown) (unknown) Urine Nitrate (units ( unknown) date) Negative Last unknown) Edit by Winter Gutierrez RN on 12/13/21 11:14 (unknown) (no (unknown) (unknown) Urine Protein (units ( unknown) date) Negative Last unknown) Edit by Winter Gutierrez RN on 12/13/21 11:14 (unknown) (no (unknown) (unknown) Urine Specific (units (unknown) date) [place] 1.015 unknown) Last Edit by Winter Gutierrez RN on 12/13/21 11 (unknown) (no (unknown) (unknown) Urine Urobilinogen (units (unknown) date) - 0.2 mg/dL unknown) Last Edit by Winter Gutierrez RN on (unknown) (no (unknown) (unknown) Urine pH 7.5 (units (unknown) date) Last Edit by Winter unknown) DIVINE Gutierrez on 12/13/21 11:14 (unknown) (no (unknown) (unknown) (1) Abnormal semen (units (unknown) date) analysis: unknown) (unknown) (no (unknown) (unknown) (2) Infertility (units (unknown) date) counseling: unknown) (unknown) (no (unknown) (unknown) (3) Infertility: (units (unknown) date) unknown) (unknown) (no (unknown) (unknown) [id number] (units (unkn own) date) unknown) (unknown) (no (unknown) (unknown) 12/13/21 (units (unkno wn) date) unknown) (unknown) (no (unknown) (unknown) 11:14 (units (unkno wn) date) unknown) (unknown) (no (unknown) (unknown) 14 (units (unkno wn) date) unknown) (unknown) (no (unknown) (unknown) 2 (units (unkno wn) date) unknown) (unknown) (no (unknown) (unknown) 22 (units (unkno wn) date) unknown) (unknown) (no (unknown) (unknown) 26 Y/O M presents (units (unknown) date) to clinic as new unknown) patient for infertility (unknown) (no (unknown) (unknown) 7 days of (units (unkn own) date) abstinence prior to unknown) the samples and approximately 2 weeks apart and (unknown) (no (unknown) (unknown) :14 (units (unkno wn) date) unknown) (unknown) (no (unknown) (unknown) Abdominal exam: (units (unknown) date) Soft, nontender, unknown) without palpable mass or hepatosplenomegaly (unknown) (no (unknown) (unknown) Abnormal semen (units (unknown) date) analysis unknown) (unknown) (no (unknown) (unknown) Age/Sex: 26 / M (units (unknown) date) Date of Service: unknown) (unknown) (no (unknown) (unknown) All systems (units (un known) date) reviewed + are unknown) unremarkable except as noted in HPI and below (And (unknown) (no (unknown) (unknown) Allergies (units (unkn own) date) unknown) (unknown) (no (unknown) (unknown) Assessment + Plan (units (unknown) date) unknown) (unknown) (no (unknown) (unknown) Assessment and plan: (unit s (unknown) date) Patient with unknown) abnormal semen analysis, apparent infertility (unknown) (no (unknown) (unknown) Attending Dr: Ceferino (unit s (unknown) date) Alexei Carl MD unknown) (unknown) (no (unknown) (unknown) BMI 25.7 (units (un known) date) unknown) (unknown) (no (unknown) (unknown) BP 131/81 (units (u nknown) date) unknown) (unknown) (no (unknown) (unknown) Back: Without CVA (units (unknown) date) or flank tenderness unknown) (unknown) (no (unknown) (unknown) Blood Pressure (units (unknown) date) Location Lt unknown) brachial (unknown) (no (unknown) (unknown) Cardiovascular (units (unknown) date) exam: Regular rate unknown) and rhythm without murmur (unknown) (no (unknown) (unknown) Chief Complaint (units (unknown) date) unknown) (unknown) (no (unknown) (unknown) Chief Complaint: (units (unknown) date) Abnormal sperm unknown) motility/infertility (unknown) (no (unknown) (unknown) Const (units (unkno wn) date) unknown) (unknown) (no (unknown) (unknown) Counseling and (units (unknown) date) educating the unknown) patient/family/careg iver: 16 (unknown) (no (unknown) (unknown) : 1995 (units (unknown) date) Acct:[id number] unknown) (unknown) (no (unknown) (unknown) Dept at (units (unkno wn) date) . unknown) (unknown) (no (unknown) (unknown) Details: (units (unkno wn) date) unknown) (unknown) (no (unknown) (unknown) Documented By: (units (unknown) date) Ceferino Carl MD unknown) 12/13/21 1105 (unknown) (no (unknown) (unknown) Exam (units (unkno wn) date) unknown) (unknown) (no (unknown) (unknown) Exam Narrative (units (unknown) date) unknown) (unknown) (no (unknown) (unknown) Exam Narrative: (units (unknown) date) unknown) (unknown) (no (unknown) (unknown) General: This is (units (unknown) date) an awake, alert, unknown) oriented, fit-appearing 26-year-old male in (unknown) (no (unknown) (unknown) Genitourinary exam: (unit s (unknown) date) Circumcised penis, unknown) normal meatus, normal penis, normal (unknown) (no (unknown) (unknown) HPI (units (unkno wn) date) unknown) (unknown) (no (unknown) (unknown) Height 6 ft 1 in (unit s (unknown) date) unknown) (unknown) (no (unknown) (unknown) Hernias: None (units ( unknown) date) detected unknown) (unknown) (no (unknown) (unknown) History of pyloric (units (unknown) date) stenosis unknown) (unknown) (no (unknown) (unknown) Hx of thyroid cyst (units (unknown) date) unknown) (unknown) (no (unknown) (unknown) Independently (units ( unknown) date) interpreting test unknown) results + communicating results to (unknown) (no (unknown) (unknown) Intake (units (unkno wn) date) unknown) (unknown) (no (unknown) (unknown) Intake Note: (units (u nknown) date) unknown) (unknown) (no (unknown) (unknown) Intake performed (units (unknown) date) by: Samanta Schroeder unknown) (unknown) (no (unknown) (unknown) Intake- Clincial (units (unknown) date) Staff unknown) (unknown) (no (unknown) (unknown) Loc: [facility] (units (unkno wn) date) unknown) (unknown) (no (unknown) (unknown) Lungs: Clear full (units (unknown) date) and equal unknown) (unknown) (no (unknown) (unknown) Medical History (units (unknown) date) (Reviewed 12/14/21 @ unknown) 11:19 by Ceferino Carl MD) (unknown) (no (unknown) (unknown) Medications (units (un known) date) unknown) (unknown) (no (unknown) (unknown) Neurologic exam: (units (unknown) date) Grossly intact unknown) (unknown) (no (unknown) (unknown) Obtaining and/or (units (unknown) date) reviewing separately unknown) obtained history: 10 (unknown) (no (unknown) (unknown) Ordering (units (unkno wn) date) medications, tests, unknown) or procedures: 4 (unknown) (no (unknown) (unknown) Orders (units (unkno wn) date) unknown) (unknown) (no (unknown) (unknown) Oxygen Delivery (units (unknown) date) Method room air unknown) (unknown) (no (unknown) (unknown) PFSH (units (unkno wn) date) unknown) (unknown) (no (unknown) (unknown) POC Urine Dip (units ( unknown) date) 12/13/21 R30.0 - unknown) Dysuria (unknown) (no (unknown) (unknown) Patient denies (units (unknown) date) medical problems unknown) (unknown) (no (unknown) (unknown) Patient: (units (unkno wn) date) Steve Fleming unknown) MR#: M (unknown) (no (unknown) (unknown) Performing a (units (u nknown) date) medically unknown) appropriate exam and/or evaluation: 5 (unknown) (no (unknown) (unknown) Plan (units (unkno wn) date) unknown) (unknown) (no (unknown) (unknown) Position Sitting (unit s (unknown) date) unknown) (unknown) (no (unknown) (unknown) Preparing to see (units (unknown) date) the patient, i.e., unknown) chart review, review of tests: 7 (unknown) (no (unknown) (unknown) Pulse 64 (units (un known) date) unknown) (unknown) (no (unknown) (unknown) Pulse Oximetry (%) (units (unknown) date) 100 unknown) (unknown) (no (unknown) (unknown) Pulse Source (units (u nknown) date) Monitor unknown) (unknown) (no (unknown) (unknown) R86.9 - Unspecified (unit s (unknown) date) abnormal finding in unknown) specimens from male genital organs (unknown) (no (unknown) (unknown) ROS (units (unkno wn) date) unknown) (unknown) (no (unknown) (unknown) Reason For Visit (units (unknown) date) unknown) (unknown) (no (unknown) (unknown) Respiration 16 (units (unknown) date) unknown) (unknown) (no (unknown) (unknown) Results (units (unkno wn) date) unknown) (unknown) (no (unknown) (unknown) Semen Analysis - (units (unknown) date) Fertility 1 Week unknown) R86.9 - Unspecified abnormal finding in (unknown) (no (unknown) (unknown) Semen Analysis - (units (unknown) date) Fertility 3 Weeks unknown) R86.9 - Unspecified abnormal finding in (unknown) (no (unknown) (unknown) Signed By: (units (unk nown) date) <Electronically unknown) signed by Ceferino Carl MD> (unknown) (no (unknown) (unknown) Smoking Status: (units (unknown) date) Never smoker unknown) (unknown) (no (unknown) (unknown) Smoking Status: (units (unknown) date) Never smoker unknown) (unknown) (no (unknown) (unknown) Social History (units (unknown) date) (Reviewed 12/14/21 @ unknown) 11:19 by Ceferino Carl MD) (unknown) (no (unknown) (unknown) This 26-year-old (units (unknown) date) male comes Urology unknown) Clinic as a new patient with complaint of (unknown) (no (unknown) (unknown) This note may have (units (unknown) date) been all or unknown) partially generated using voice recognition (unknown) (no (unknown) (unknown) Time Coding Minutes (unit s (unknown) date) Spent: (must be on unknown) same date of service/appointment) (unknown) (no (unknown) (unknown) Time Spent (units (unk nown) date) unknown) (unknown) (no (unknown) (unknown) Tobacco Status (units (unknown) date) unknown) (unknown) (no (unknown) (unknown) Total Time: 48 (units (unknown) date) unknown) (unknown) (no (unknown) (unknown) Type(s) of (units (unk nown) date) exercise: unknown) independent ambulation (unknown) (no (unknown) (unknown) Urine Dipstick (units (unknown) date) unknown) (unknown) (no (unknown) (unknown) 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 But was review the semen analysis it (unknown) (no (unknown) (unknown) alcohol intake: (units (unknown) date) current unknown) (unknown) (no (unknown) (unknown) analysis (units (unkno wn) date) specifically looking unknown) at Fertility with at least 5-7 days of abstinence (unknown) (no (unknown) (unknown) and 10-14 days (units (unknown) date) between samples and unknown) then follow-up. (unknown) (no (unknown) (unknown) appears he has (units (unknown) date) abnormal sperm unknown) morphology and no look perfection. Patient (unknown) (no (unknown) (unknown) been trying in the (units (unknown) date) last 6 to 4 months. unknown) His is currently undergoing (unknown) (no (unknown) (unknown) bilaterally. (units (u nknown) date) unknown) (unknown) (no (unknown) (unknown) caffeine: Yes (units (unknown) date) unknown) (unknown) (no (unknown) (unknown) clindamycin Allergy (unit s (unknown) date) (Verified 12/13/21 unknown) 11:10) (unknown) (no (unknown) (unknown) evaluation. She (units (unknown) date) had previously been unknown) on Clomid and they have been unsuccessful (unknown) (no (unknown) (unknown) fathered no (units (un known) date) children. Had a unknown) lengthy discussion with him about fertility the (unknown) (no (unknown) (unknown) have occurred. If (units (unknown) date) there are any unknown) questions, please contact the Medical Records (unknown) (no (unknown) (unknown) in conceiving to (units (unknown) date) date. They have unknown) been instructed on monitoring the timing of (unknown) (no (unknown) (unknown) marijuana or other (units (unknown) date) illicit substances unknown) he does drink some alcohol. He denies (unknown) (no (unknown) (unknown) marital status: (units (unknown) date) unknown) (unknown) (no (unknown) (unknown) may occur. (units (unk nown) date) Occasional unknown) wrong-word or 'sound-alike' substitutions may have (unknown) (no (unknown) (unknown) [id number]- (unit s (unknown) date) vit K-lycop unknown) [One-A-Day Men's Multivitamin] PO 12/13/21 (unknown) (no (unknown) (unknown) natural history of (units (unknown) date) sperm formation and unknown) briefly the the various multiple causes (unknown) (no (unknown) (unknown) no acute distress (units (unknown) date) unknown) (unknown) (no (unknown) (unknown) number of children: (unit s (unknown) date) 0 unknown) (unknown) (no (unknown) (unknown) occupational (units (u nknown) date) status: employed unknown) (unknown) (no (unknown) (unknown) occurred due to the (unit s (unknown) date) inherent limitations unknown) of voice recognition software. 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 At unknown) this point plan would be to repeat his semen (unknown) (no (unknown) (unknown) ovulation which (units (unknown) date) they had not been unknown) instructed in. Patient denies use of (unknown) (no (unknown) (unknown) ovulation. I (units ( unknown) date) suggested unknown) instructions for the timing of sexual activity around (unknown) (no (unknown) (unknown) patient/caregiver: (units (unknown) date) 6 unknown) (unknown) (no (unknown) (unknown) plan would be repeat (unit s (unknown) date) semen analysis unknown) specifically focusing on infertility with 5- (unknown) (no (unknown) (unknown) problem list) (units ( unknown) date) unknown) (unknown) (no (unknown) (unknown) read the note (units ( unknown) date) carefully and unknown) recognize, using context, where these substitutions (unknown) (no (unknown) (unknown) reports that it was (unit s (unknown) date) 3 days of abstinence unknown) prior to the samples. That he and his (unknown) (no (unknown) (unknown) scrotum, normal (units (unknown) date) testes, normal unknown) epididymis, normal cord structures, vas present (unknown) (no (unknown) (unknown) significant (units (un known) date) exposure to air unknown) medic or volatile compound. 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 (units (unknown) date) unknown) (unknown) (no (unknown) (unknown) trauma, previous (units (unknown) date) surgery on the unknown) testicles or scrotum. He has previously (unknown) (no (unknown) (unknown) have been (units (unknown) date) trying to have a unknown) child for approximately year but have really Result panel 6 (unknown) (no date) (unknown) (unknown) 32 %ABNORM (unkn own) (unknown) (no date) (unknown) (unknown) 4 (units unknown) (unknown) (unknown) (no date) (unknown) (unknown) 65% % Motile (unkn own) (unknown) (no date) (unknown) (unknown) 70 x10 6/mL (unkn own) (unknown) (no date) (unknown) (unknown) 8 (units unknown) (unknown) (unknown) (no date) (unknown) (unknown) YES (units unknown) (unknown) Social History date description facility (no date) Never smoked tobacco (finding) [facility] Vital Signs date measurement value units +0000 BMI BMI 25.7 kg/m2 +0000 BP_diastolic BP_diastolic 81 mm[H g] +0000 BP_systolic BP_systolic 131 mm[Hg] [id number]+0000 heart_rate heart_rate 64 /min +0000 height_metric height_metric 185.42 cm +0000 height_standard height_standard 73 in +0000 respiration_rate respiration_rate 16 /min [id number]+0000 weight_metric weight_metric 88.45 kg [id number]+0000 weight_standard weight_standard 195 lb
[2022-02-20 16:42] VITALS: BP 145/89
--- NOTE | 2022-02-20 16:43 | ED Physician Documentation ---
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 No particular injury. has had swelling anterior knee the past few days again, with similar episode about 5 weeks ago. Drained at that visit and was good for a month. No regular knee pains, nor locking/clicking/giving out.) Timing - onset: How many days ago (recurrent swelling past few days. Had similar 5 weeks ago.) Timing - duration: Days Timing - details: Abrupt onset, Still present Associated symptoms: Swelling. No: Weakness, Numbness, Discolored Similar symptoms before: Diagnosis (prepatellar bursitis without apparent acute injury. Fluid eval prior visit negative for infection and crystals.) Review of Systems Constitutional: denies: Fever, Chills Skin: denies: Rash, Lesions, Abrasion (s), Laceration (s) Neurologic: denies: Focal weakness, Numbness PD PAST MEDICAL HISTORY - Past Medical History Past Medical History: No Musculoskeletal: None - Past Surgical History Past Surgical History: Yes - Present Medications Home Medications: Ambulatory Orders Medication Instructions Recorded Confirmed No Known Home Medications 01/05/22 02/20/22 - Allergies Allergies/Adverse Reactions: Allergies Allergy/AdvReac Type Severity Reaction Status Date / Time clindamycin Allergy Severe Nausea Verified 02/20/22 14:11 - Social History Does the pt smoke?: No Smoking Status: Never smoker Does the pt drink ETOH?: Yes Does the pt have substance abuse?: No - Immunizations Immunizations are current?: Yes - POLST Patient has POLST: No PD ED PE NORMAL - Vitals Vital signs reviewed: Yes - General General: Alert and oriented X 3, No acute distress, Well developed/nourished - Derm Derm: Normal color, Warm and dry, No rash - Extremities Extremities: Other (right knee with anterior effusion. No joint effusion itself. Minimal bursal tenderness. Quads extension wtihout pain. Not tender proximal tibia. ) - Neuro Neuro: Alert and oriented X 3, No motor deficit, No sensory deficit Results - Vitals Vitals: Vital Signs - 24 hr 02/20/22 02/20/22 14:07 16:41 Temperature 36.5 C Heart Rate 64 76 Respiratory 16 16 Rate Blood Pressure 143/91 H 145/89 H O2 Saturation 99 99 Oxygen O2 Source Room air Procedures - Arthrocentesis Joint: Knee Preparation: Consent obtained (verbal), Sterile prep and drape Anesthesia: Lidocaine 1% Fluid: Bloody, Clear, Fluid obtained - cc (16) Aftercare: Dressing applied, No complications, Patient tolerated well PD MEDICAL DECISION MAKING - ED course Complexity details: reviewed old records, considered differential (patellofemoral syndrom with irritation and effusion versus ptellar tendonitis. Does not seem gout. ), d/w patient Departure - Departure Disposition: 01 Home, Self Care Clinical Impression: Prepatellar effusion of right knee, Prepatellar bursitis Condition: Stable Record reviewed to determine appropriate education?: Yes Instructions: Patellofemoral Syndrome Follow-Up: Brigido Gotti [Primary Care Provider] - [facility] [Provider Group] Comments: For tonight and possibly tomorrow use a wrap over the need to help reduce the sooner refilling of the fluid. Normal activity starting tomorrow was okay. I wonder if the cause of this is either a direct irritation of the knee and bursa by kneeling and such so perhaps kneepads when you are working. Alternatively you can get irritation of the bursa with the kneecap moving around excessively so consider use of a sleeve type knee brace that does not cover the kneecap. This tries to hold the kneecap in better position when you are doing activity. Tylenol or ibuprofen if needed for pains. Follow-up with your primary care or more pertinent would be the orthopedic office if you keep having recurrences. Discharge Date/Time: 02/20/22 17:09
== END 2022-02-20 17:09 | disposition home or self-care (01) ==
LOC: ED 13:52
DX: M25.461 Effusion, right knee (principal); M70.41 Prepatellar bursitis, right knee
CPT/HCPCS: 20610; 99282

== ENCOUNTER 2022-09-05 18:52 | Outpatient (CLI) | payer OTHER ==
--- NOTE | 2022-09-05 20:22 | XRAY Report ---
PROCEDURE: Wrist 3 View LT INDICATIONS: TENDINITIS TECHNIQUE: 4 views of the wrist were acquired. COMPARISON: None FINDINGS: Bones: No fractures or dislocations. No suspicious bony lesions. Scaphoid view: Scaphoid is intact. Soft tissues: No suspicious soft tissue calcifications. IMPRESSION: No wrist fracture or dislocation. No gross soft tissue abnormalities. If indicated, MRI of wrist can be done for further evaluation of internal derangement. Reviewed by: Uli Christian MD on 09/05/2022 8:21 PM PST Approved by: Uli Christian MD on 09/05/2022 8:21 PM PST Station ID: [id number]
--- NOTE | 2022-09-05 21:04 | Ultrasound Report ---
PROCEDURE: Duplex Ext Veins Left INDICATIONS: TENDINITIS TECHNIQUE: Real-time imaging, as well as color and pulse Doppler interrogation, was performed of the left upper extremity deep veins from the inferior neck to the antecubital fossa. COMPARISON: None. FINDINGS: The internal jugular vein, visualized portions of the subclavian vein, axillary, and brach ial veins are free of intraluminal thrombus. Where physically possible, the veins are normally compr essible. Color and pulse Doppler demonstrate normal intraluminal flow, with expected phasicity and p ulsatility. Additional scanning of the cephalic and basilic veins of the superficial system demonstr ate normal compressibility, without thrombus. Evaluation in the area of clinical concern in the forearm demonstrates no discrete subjacent mass or fluid collection. IMPRESSION: 1. No evidence of deep venous thrombosis in the left upper extremity. Reviewed by: Rell Brito MD on 09/05/2022 9:03 PM [facility] Approved by: Rell Brito MD on 09/05/2022 9:03 PM [facility] Station ID: [id number]
== END 2022-09-05 18:53 | disposition home or self-care (01) ==
LOC: DI 18:52
PROVIDERS: ATTEND Registered Nurse
DX: M77.9 Enthesopathy, unspecified (principal); R22.32 Localized swelling, mass and lump, left upper limb

== ENCOUNTER 2023-05-15 09:36 | Emergency (ER) | payer OTHER ==
[2023-05-15 10:03] VITALS: O2SAT 100
--- NOTE | 2023-05-15 10:22 | XRAY Report ---
PROCEDURE: Ribs w/PA Chest RT INDICATIONS: GLF, RIB PAIN/INJURY TECHNIQUE: 2 views of the right ribs were acquired, along with a single view chest. COMPARISON: None. FINDINGS: Surgical changes and devices: None. Bones and chest wall: No fractures or dislocations. No suspicious bony lesions. Overlying soft tis sues appear unremarkable. Lungs and pleura: No pleural effusions or pneumothorax. Lungs appear clear. Mediastinum: Mediastinal contours appear normal. Heart size is normal. IMPRESSION: No displaced rib fracture or pneumothorax. Reviewed by: Uli Christian MD on 05/15/2023 10:20 AM PDT Approved by: Uli Christian MD on 05/15/2023 10:20 AM PDT Station ID: [id number]
[2023-05-15] MEDS ORDERED: KETOROLAC 30 MG/ML VIAL IM STA (12:05)
[2023-05-15] MEDS ORDERED: LIDOCAINE PATCH 5% TOP STA (12:05)
--- NOTE | 2023-05-15 12:07 | ED Physician Documentation ---
History of Present Illness - Stated complaint Stated Complaint: RT ABD PX,SOA - Chief complaint Chief Complaint: Trauma Ch/Bk - History obtained from History obtained from: Patient - History of Present Illness Timing: How many days ago (2) - Additonal information Additional information: 27-year-old male with no significant past medical history presents for right- sided chest wall pain for the last 2 days. Patient was taking trash out when he slipped, striking his right chest wall against the tailgate of his truck. He noticed last night that it was progressively more difficult to breathe due to pain and so he decided to present for evaluation. Review of Systems Constitutional: denies: Fever, Chills Cardiac: reports: Other (chest wall pain). denies: Chest pain / pressure, Palpitations Respiratory: reports: Dyspnea. denies: Cough, Wheezing GI: denies: Abdominal Pain, Nausea, Vomiting PD PAST MEDICAL HISTORY - Past Medical History Musculoskeletal: None - Past Surgical History Past Surgical History: Yes - Present Medications Home Medications: Ambulatory Orders Medication Instructions Recorded Confirmed Naproxen 250 mg PO BID #30 tablet 05/15/23 methocarbamoL [Robaxin] 500 mg PO Q6H #20 tablet 05/15/23 - Allergies Allergies/Adverse Reactions: Allergies Allergy/AdvReac Type Severity Reaction Status Date / Time clindamycin Allergy Severe Nausea Verified 05/15/23 09:50 - Social History Does the pt smoke?: No Smoking Status: Never smoker Does the pt drink ETOH?: Yes Does the pt have substance abuse?: No - Immunizations Immunizations are current?: Yes - POLST Patient has POLST: No PD ED PE NORMAL - Vitals Vital signs reviewed: Yes - General General: Alert and oriented X 3, No acute distress, Well developed/nourished - HEENT HEENT: Atraumatic - Neck Neck: Supple, no meningeal sign - Cardiac Cardiac: RRR, Strong equal pulses - Respiratory Respiratory: No respiratory distress, Clear bilaterally, Other (Chest wall tenderness to palpation, R midclavicular line. No crepitus) - Abdomen Abdomen: Soft, Non tender - Derm Derm: Normal color, Warm and dry, No rash - Neuro Neuro: Alert and oriented X 3, roof truss machine tender 2-12 intact, No motor deficit, Normal speech - Psych Psych: Normal mood, Normal affect Results - Vitals Vitals: Vital Signs - 24 hr 05/15/23 05/15/23 09:50 12:20 Temperature 36 C L 36.8 C Heart Rate 72 64 Respiratory 16 16 Rate Blood Pressure 137/94 H 133/95 H O2 Saturation 100 100 Oxygen O2 Source Room air PD Medical Decision Making - ED course Complexity details: reviewed results, re-evaluated patient, considered differential, d/w patient ED course: Chest wall pain after slipping and striking his chest against the tailgate of his truck. No crepitus, no deformity, lungs are clear to auscultation bilaterally. XR negative for fracture. Patient counseled on importance of taking deep breaths to prevent developing atelectasis and subsequent pneumonia. Given Toradol and a lidocaine patch in the emergency department, discharged with anti-inflammatories and Robaxin. Note for work provided. Departure - Departure Disposition: 01 Home, Self Care Clinical Impression: Rib contusion Qualifiers: Encounter type: initial encounter Laterality: right Qualified Code(s): S20.211A - Contusion of right front wall of thorax, initial encounter Condition: Stable Instructions: ED Contusion Rib Prescriptions: Naproxen 250 mg PO BID #30 tablet methocarbamoL [Robaxin] 500 mg PO Q6H #20 tablet Forms: PCP List Discharge Date/Time: 05/15/23 12:24
[2023-05-15 12:22] VITALS: BP 133/95
== END 2023-05-15 12:24 | disposition home or self-care (01) ==
LOC: ED 09:36
DX: S20.211A Contusion of right front wall of thorax, initial encounter (principal); W01.198A Fall on same level from slipping, tripping and stumbling with subsequent striking against other object, initial encounter; Y93.E9 Activity, other interior property and clothing maintenance
CPT/HCPCS: 71101; 96372; 99283; A9270